=== PATIENT | female | born 1985 | race Hispanic/Latino ===

== ENCOUNTER 2019-09-12 13:00 | Inpatient (IN) | payer MEDICAID, OTHER ==
[~2019-09-12] VITALS: Ht 157.5 cm; Wt 94.8 kg
[2019-09-12 14:13] LABS: HEMATOCRIT 35.5 % (36-48); MEAN CORPUSCULAR HEMOGLOBIN 27.9 pg (27.0-33.0); MEAN CORPUSCULAR HGB CONC 33.5 g/dL (32.0-36.0); MEAN CORPUSCULAR VOLUME 83.5 fL (79-99); PLATELET COUNT (AUTO) 141 K/uL (130-400); RED BLOOD CELL COUNT(AUTO) 4.26 MIL/uL (4.00-5.50); RED CELL DISTRIBUTION WIDTH 16.1 % (11.0-15.5); WHITE BLOOD COUNT (AUTO) 7.4 K/uL (4.8-10.8)
[2019-09-13] MEDS ORDERED: OXYTOCIN 10 USP UNITS/ML ONE (05:54)
[2019-09-13] MEDS ORDERED: FENTANYL CITRATE PF 50 MCG/1 ML 2ML VIAL ONE (05:54)
[2019-09-13] MEDS ORDERED: ONDANSETRON HCL 4 MG/2 ML VIAL ONE (05:54)
[2019-09-13] MEDS ORDERED: DURAMORPH PF1 MG/ML 10ML AMP IV ONE (05:54)
[2019-09-13] MEDS ORDERED: GLYB5TAB8 PO (05:56)
[2019-09-13] MEDS ORDERED: PREN-196 PO (05:56)
[2019-09-13] MEDS ORDERED: CEFAZOLIN SODIUM 1 GM VIAL ONE (05:59)
[2019-09-13] MEDS ORDERED: CEFAZOLIN SODIUM 1 GM VIAL IVP PRN (06:00)
[2019-09-13] MEDS ORDERED: PHENYLEPHRINE HCL 10 MG/ML 1ML VIAL IV ONE (06:57)
[2019-09-13 07:14] LABS: HEPATITIS Bs ANTIGEN SCREEN P Negative (Negative)
[2019-09-13] MEDS ORDERED: EPHEDRINE SULFATE 50 MG/ML AMPULE ONE (07:44)
[2019-09-13 09:21] VITALS: BP 97/56
[2019-09-13] MEDS ORDERED: FLU VACC QS2019-20 36MOS UP/PF 60 MCG/0.5 ML ML IM SCH ×2 (09:45)
[2019-09-13] MEDS ORDERED: DIPH,PERTUSS(ACELL),TET VAC/PF 0.5 ML VIAL IM SCH (09:45)
[2019-09-13] MEDS ORDERED: MEPERIDINE-PF 75 MG/ML SYG IM PRN (10:00)
[2019-09-13] MEDS ORDERED: SODIUM CHLORIDE 0.9% 10 ML VIAL IVP PRN (10:00)
[2019-09-13] MEDS ORDERED: OXYTOCIN-LR 20 UNITS/1000 ML 1,000 ML IV PRN (10:00)
[2019-09-13] MEDS ORDERED: MEPERIDINE-PF 25 MG/ML SYG ONE ×2 (10:13→21:29)
[2019-09-13] MEDS ORDERED: MEPERIDINE-PF 50 MG/ML SYG ONE ×2 (10:13→21:29)
[2019-09-13] MEDS: PROMETHAZINE HCL 25 MG/ML 1ML AMPULE IM PRN ×2 (10:25→21:38)
[2019-09-13] MEDS: INSULIN HUMULIN R 100 UNIT/ML 3ML SQ SCH ×3 (11:30→21:00)
[2019-09-13 11:46] VITALS: BP 102/60
[2019-09-13 11:55] LABS: RAPID PLASMA REAGIN WEAK REACTV (NONREACTIVE); RAPID PLASMA REAGIN TITER REACTIVE 1:1 (NONREACTIVE)
[2019-09-13] MEDS: SODIUM CHLORIDE 0.9% 1000ML 1,000 ML IV SCH ×2 (15:19→23:08)
[2019-09-13 16:40] VITALS: BP 122/55
[2019-09-13 19:22] VITALS: BP 98/59
[2019-09-13 23:40] VITALS: BP 100/54
[2019-09-14] MEDS: SODIUM CHLORIDE 0.9% 1000ML 1,000 ML IV SCH ×2 (00:15→07:20)
[2019-09-14] MEDS ORDERED: ACETAMINOPHEN EXTRA STRENGTH 500 MG TABLET PO PRN (03:30)
[2019-09-14] MEDS ORDERED: BISACODYL 10 MG SUPP.RECT RC PRN (03:30)
[2019-09-14 03:52] VITALS: BP 97/48
[2019-09-14] MEDS ORDERED: MEPERIDINE-PF 50 MG/ML SYG ONE (04:44)
[2019-09-14] MEDS ORDERED: MEPERIDINE-PF 25 MG/ML SYG ONE (04:45)
[2019-09-14] MEDS: PROMETHAZINE HCL 25 MG/ML 1ML AMPULE IM PRN (04:47)
[2019-09-14 05:26] LABS: HEMATOCRIT 31.6 % (36-48); MEAN CORPUSCULAR HEMOGLOBIN 28.4 pg (27.0-33.0); MEAN CORPUSCULAR HGB CONC 33.9 g/dL (32.0-36.0); MEAN CORPUSCULAR VOLUME 83.8 fL (79-99); PLATELET COUNT (AUTO) 117 K/uL (130-400); RED BLOOD CELL COUNT(AUTO) 3.77 MIL/uL (4.00-5.50); RED CELL DISTRIBUTION WIDTH 16.2 % (11.0-15.5); WHITE BLOOD COUNT (AUTO) 8.1 K/uL (4.8-10.8)
[2019-09-14 05:48] LABS: PLATELET MORPHOLOGY COMMENT PLT CLUMPS PRESENT
--- NOTE | 2019-09-14 06:46 | NUR ---
Quiros: Quiros Catheter taken out with clear yellow urine. Patient tolerated it well. Patient advice to call for help the first time she gets up to the bathroom. She verbalizes understanding.
[2019-09-14] MEDS: INSULIN HUMULIN R 100 UNIT/ML 3ML SQ SCH ×4 (07:19→21:00)
[2019-09-14 07:25] VITALS: BP 99/58
--- NOTE | 2019-09-14 09:15 | NUR ---
PATIENT DIZZY PATIENT AMBULATED TO BR ACCOMPANIED MARISSA FLORES AND STATED SHE STARTED FEELING DIZZY. WHEELCHAIR BROUGHT IN AND PATIENT ASSISTED BACK TO BED AND TOLD TO CALL FOR ASSISTANCE NEXT TIME NEEDING TO BR. PATIENT VERBALIZED UNDERSTANDING AND STATED SHE WAS FEELING BETTER ONCE LAYING IN BED. WILL CONTINUE TO MONITOR.
[2019-09-14] MEDS: SIMETHICONE 80 MG TAB.CHEW PO PRN ×3 (09:36→18:56)
[2019-09-14] MEDS: DOCUSATE SODIUM 100 MG CAP PO SCH ×2 (09:36→21:39)
[2019-09-14] MEDS: HYDROCODONE/ACETAMINOPHEN 5/325 MG TAB PO PRN ×2 (09:37→18:56)
[2019-09-14 11:09] VITALS: BP 108/64
[2019-09-14] MEDS: IBUPROFEN 600 MG TABLET PO PRN ×2 (14:47→20:10)
[2019-09-14 16:15] VITALS: BP 98/69
[2019-09-14 19:21] VITALS: BP 106/62
[2019-09-15] MEDS: ACETAMINOPHEN-CODEINE 300/30MG TAB PO PRN ×2 (00:02→11:45)
[2019-09-15 00:08] VITALS: BP 104/70
[2019-09-15] MEDS: SODIUM CHLORIDE 0.9% 1000ML 1,000 ML IV SCH (01:48)
[2019-09-15 03:28] VITALS: BP 89/51
[2019-09-15 07:24] VITALS: BP 108/52
[2019-09-15] MEDS: SIMETHICONE 80 MG TAB.CHEW PO PRN (08:59)
[2019-09-15] MEDS: DOCUSATE SODIUM 100 MG CAP PO SCH (09:01)
[2019-09-15] MEDS: IBUPROFEN 600 MG TABLET PO PRN (09:01)
[2019-09-15 11:41] VITALS: BP 111/72
== END 2019-09-15 14:15 | disposition home or self-care (01) | DRG 785 ==
LOC: LDH 09-13 05:43 → WSH 09-13 09:27
PROVIDERS: ADMIT Obstetrics & Gynecology; ATTEND Obstetrics & Gynecology
PROC: 10D00Z1 Extraction of Products of Conception, Low, Open Approach (ICD-10-PCS; 2019-09-13)
PROC: 0UB70ZZ Excision of Bilateral Fallopian Tubes, Open Approach (ICD-10-PCS; principal; 2019-09-13 06:30)
PROC: 3E0234Z Introduction of Serum, Toxoid and Vaccine into Muscle, Percutaneous Approach (ICD-10-PCS; 2019-09-14)
PROC: 3E02340 Introduction of Influenza Vaccine into Muscle, Percutaneous Approach (ICD-10-PCS; 2019-09-14)
DX: O34.211 Maternal care for low transverse scar from previous cesarean delivery (principal); O69.81X0 Labor and delivery complicated by cord around neck, without compression, not applicable or unspecified; Z30.2 Encounter for sterilization; Z37.0 Single live birth; Z23 Encounter for immunization
CPT/HCPCS: 36415; 59510; 82948; 85027; 86592; 86780; 86850; 86900; 86901; 87340; 88302; 90715; A4344; A4450; G0008; G0378; J0690; J2175; J2274; J2370; J2405; J2550; J2590; J3010; J3490; J7030; J7120; Q2035